=== PATIENT | male | born 1960 | race Caucasian/White ===

== ENCOUNTER 2017-11-07 06:37 | Emergency (ER) | payer BC, SELFPAY ==
[2017-11-07 06:38] VITALS: BP 147/74; PULSE 82; RESP 17; TEMP 36.6; O2SAT 96; BMI 39.8
--- NOTE | 2017-11-07 07:02 | ED.VISSUMM ---
- ER Visit Summary Date of Service: 11/07/17 Chief Complaint: Hives History of Present Illness: The patient is a 56 M who states that on Wednesday (2 days ago) when he laid down to sleep he developed diffuse itching and hives. He states he had this about 6 years ago no cause was identified. He has not had a recurrence. At that time he was not on lisinopril. He is currently on lisinopril. He does not note any angioedema-like symptoms. He denies any shortness of breath or any gastrointestinal symptoms. He denies any bullae. He denies any changes in soaps lotions or shampoos detergents etc. Physical Examination: Afebrile vital signs are stable Gen: Well-nourished well-developed Head: Normocephalic atraumatic Eyes: Perrl EOMI ENT: TMs clear no rhinorrhea moist mucous membranes Neck: Supple no lymphadenopathy no JVD nontender CVS: Regular rate rhythm no murmurs normal S1-S2 Respiratory: No distress clear to auscultation bilaterally chest nontender Abdomen: Soft nontender nondistended normal bowel sounds no masses Back: Nontender Extremity: Nontender no edema Skin: Normal color patient has hives torso arms legs Neuro: alert orientated ?3 CN II-XII intact normal strength sensation reflexes gait cerebellar Psych: Normal affect normal mood Emergency Department Course and Treatment: Patient will be started on tapering dose of prednisone. Also would recommend Pepcid. Patient will follow up with his doctor return if worsening or concerns. Impression: 1. Urticaria This note was generated with [employer] dictation software. It may contain incorrect words, spelling, and punctuation that were not noted in review of the chart prior to signing ED Disposition - Plan for ED Patient: Disposition: Home or Assisted Living Chief Complaint: Allergic Reaction Instructions: ED Urticaria Prescriptions: Prednisone [Deltasone] 60 mg PO DAILY #24 tab Famotidine [Pepcid] 20 mg PO BID #14 tab Referrals: Jaime Tolentino MD [Primary Care Provider] - 1 Week
== END 2017-11-07 07:19 | disposition home or self-care (01) ==
PROVIDERS: Emergency Provider Emergency Medicine; Family Provider Family Medicine; PCP Family Medicine
DX: L50.9 Urticaria, unspecified (principal); I10 Essential (primary) hypertension; Z79.899 Other long term (current) drug therapy
CPT/HCPCS: 99282

== ENCOUNTER 2019-12-18 10:45 | Emergency (ER) | payer BC, SELFPAY ==
[2019-12-18 10:46] VITALS: BP 161/75; PULSE 93; RESP 16; TEMP 36.4; O2SAT 99; BMI 35.5
--- NOTE | 2019-12-18 10:57 | ED.VISSUMM ---
- ER Visit Summary Date of Service: 12/18/19 Chief Complaint: Laceration History of Present Illness: The patient is a 59 M presenting with laceration to left index finger. He states that his finger got caught on a wood splitter yesterday. He felt it would improve with just using a Band-Aid. The bleeding is controlled. He denies other injuries. Last tetanus is unknown. Physical Examination: Vitals are stable. Patient is afebrile. Alert no acute distress. HEENT exam is unremarkable. Neck is supple. Lungs are clear and equal bilaterally. Heart is regular rate and rhythm. Extremities left distal index finger 1.5 cm laceration. Tendon function intact. Normal cap refill Skin is warm and dry. No focal neurologic deficit. Remainder of exam is unremarkable. Emergency Department Course and Treatment: Patient was given Adacel IM. Wound was irrigated. Left hand x-ray shows nondisplaced fracture through the distal pharynx of the index finger with a tiny radiopacity in the soft tissues. Tiny linear opacity is seen within the dorsal soft tissues between the third and fourth metatarsal heads. There is no wound in this area. Wound was copiously irrigated. Dressing was applied as well as aluminum foam splint. He was given Keflex. Advised to follow-up with Dr. Kirkland. Advised return to ED for worsening complaints. Disposition: Discharge home Impression: Left index finger laceration, left index distal phalanx fracture This note was generated with [employer] dictation software. It may contain incorrect words, spelling, and punctuation that were not noted in review of the chart prior to signing ED Disposition - Plan for ED Patient: Instructions: ED Laceration Hand Prescriptions: Cephalexin [Keflex] 500 mg PO Q6 #40 cap Prescription Printed Referrals: Chilango Kirkland MD [STAFF PHYSICIAN] - Jaime Tolentino MD [Primary Care Provider] -
[2019-12-18] MEDS: Diphth,Pertuss(Acell),Tet Vac 0.5 ML Vial IM (10:59)
--- NOTE | 2019-12-18 11:07 | RAD_ITS ---
STUDY: X-RAY - LEFT HAND REASON FOR EXAM: Male, 59 years old. Laceration to left index finger from wood splitter yesterday TECHNIQUE: 3 view(s) of the hand. COMPARISON: None. FINDINGS: Normal radiocarpal articulation. Normal distal radioulnar joint. Normal visualized carpal bones. Normal carpal articulations Normal carpometacarpal articulation of the thumb. Normal second through fifth carpometacarpal joints. Normal metacarpi. Normal metacarpophalangeal joint of the thumb. Normal interphalangeal joint of the thumb. Normal proximal and distal phalanges of the thumb. Normal metacarpophalangeal joints of the second through fifth fingers. Normal proximal and distal interphalangeal joints of the second through fifth fingers. Nondisplaced linear fracture involving the distal phalanx of the index finger. A tiny radiopacity is seen along the ulnar aspect of the tuft of the index finger. There is also evidence of a tiny linear density in the dorsal soft tissues between the heads of the third and fourth metacarpals. RAD/Hand Min 3 Views IMPRESSION: Nondisplaced fracture through the distal pharynx of the index finger with a tiny radiopacity in the soft tissues as described. Tiny linear opacity is seen within the dorsal soft tissues between the third and fourth metatarsal heads. Electronically Signed: Eugene Garces, at 11:20 EDT , Service support ,
--- NOTE | 2019-12-18 11:41 | ED.DEP ---
ED Disposition - Plan for ED Patient: Instructions: ED Laceration Hand Prescriptions: Cephalexin [Keflex] 500 mg PO Q6 #40 cap Prescription Printed Referrals: Jaime Tolentino MD [Primary Care Provider] -
--- NOTE | 2019-12-18 11:45 | ED.DEP ---
ED Disposition - Plan for ED Patient: Instructions: ED Laceration Hand Prescriptions: Cephalexin [Keflex] 500 mg PO Q6 #40 cap Prescription Printed Referrals: Jaime Tolentino MD [Primary Care Provider] - Chilango Kirkland MD [STAFF PHYSICIAN] -
[2019-12-18] MEDS: Cephalexin 250 MG Capsule 500 MG PO (12:00)
== END 2019-12-18 12:06 | disposition home or self-care (01) ==
PROVIDERS: Emergency Provider Emergency Medicine; PCP Family Medicine
DX: S61.211A Laceration without foreign body of left index finger without damage to nail, initial encounter (principal); S62.631A Displaced fracture of distal phalanx of left index finger, initial encounter for closed fracture; I10 Essential (primary) hypertension; X58.XXXA Exposure to other specified factors, initial encounter
CPT/HCPCS: 12001; 73130; 90715; 96372; 99283

== ENCOUNTER 2021-12-25 08:44 | Emergency (ER) | payer BC, SELFPAY ==
[2021-12-25 08:45] VITALS: BP 114/56; PULSE 76; RESP 16; TEMP 36.1; O2SAT 94; BMI 37.8
--- NOTE | 2021-12-25 09:03 | RAD_ITS ---
STUDY: X-RAY CHEST REASON FOR EXAM: Male, 61 years old. Chest pain. Syncope. TECHNIQUE: Single AP portable view of the chest. COMPARISON: None. FINDINGS: EKG electrodes are seen. Mild increased markings in the posterior medial segment of the left lower lobe. Follow-up recommended. There is no demonstrated pleural abnormality. Normal size heart. Normal mediastinum and mary. Normal visualized pulmonary arteries. Normal visualized aortic arch and descending thoracic aorta. There are diffuse degenerative changes of the visualized thoracic spine. Normal visualized ribs, clavicles, and shoulders. There is no demonstrated abnormality of the visualized soft tissue structures of the upper abdomen. RAD/Chest 1 View (Portable) IMPRESSION: Mild degree of increased markings in the posterior medial segment of the left lower lobe. Follow-up recommended. Electronically Signed: Eugene Garces MD at 9:58 EDT ,
--- NOTE | 2021-12-25 09:03 | EKG12_ITS ---
Test Reason : SYNCOPE Blood Pressure : / mmHG Vent. Rate : 080 BPM Atrial Rate : 080 BPM P-R Int : 152 ms QRS Dur : 106 ms QT Int : 384 ms P-R-T Axes : 048 -17 044 degrees QTc Int : 442 ms Sinus rhythm with occasional Premature ventricular complexes Inferior infarct , age undetermined Abnormal ECG Confirmed by RAUL OLSON, LYLE ([id number]), news videotape editor TELLO SCHUSTER ([id number]) on 12/29/2021 10:40:44 AM Referred By: KRUPA Confirmed By:LYLE CARTER MD
--- NOTE | 2021-12-25 09:04 | EX.ED.DYSGE1 ---
HPI History of Present Illness Chief Complaint: Syncope Informant: patient and EMS Onset/Context/Timing Onset: Today Narrative Narrative: Patient presents after having a syncopal episode at work. Patient states has not felt well for the past 2 days. He was off work yesterday and today at work just felt more fatigued and tired than normal. He had a mild cough for 2 days. He had a poor appetite and not been eating and drinking much. He does have a history of hypertension and did take his blood pressure medication this morning. Patient states he members feel then lightheaded. He was going to go tell his boss that he needed to leave work at 10 because he was not feeling well. The next thing he remembers he woke up on the floor. He states he does remember his vision going white before passing out. He denies having chest pain or palpitations. PFSH [facility], [facility] Medical History Hypertension Home Medications lisinopril 10 mg tablet 10 mg PO DAILY 11/07/17 [History Last Taken Unknown] Allergy/AdvReac Type Severity Reaction Status Date / Time calamine [From Caladryl] Allergy Hives Verified 12/25/21 08:51 camphor [From Caladryl] Allergy Hives Verified 12/25/21 08:51 pramoxine [From Caladryl] Allergy Hives Verified 12/25/21 08:51 diphenhydramine AdvReac Hives Verified 12/25/21 08:50 [From Benadryl] Surgical History no surgical history Social History Smoking Status: Never smoker ROS ROS ED Constitutional Constitutional ED: Denies chills or fever(s) Eyes Eyes: Denies change in vision or discharge from eye(s) ENT ENT ED: Denies discharge from eye(s), rhinorrhea or sore throat Cardiovascular Cardiovascular: Denies chest pain or palpitations Respiratory/Chest Respiratory/Chest: Reports cough; Denies dyspnea Gastrointestinal Gastrointestinal: Reports other Details: Decreased appetite ; Denies abdominal pain, diarrhea, nausea or vomiting Genitourinary Genitourinary ED: Denies dysuria Musculoskeletal Musculoskeletal: Denies back pain or extremity pain Integumentary Denies Abrasions or rash Neurologic Neurologic: Denies headache(s) or weakness Allergic/Immunologic Allergic/Immunologic ED: Denies lip swelling or urticaria EXAM Physical Exam Const Vital Signs: 12/25/21 08:45 12/25/21 08:59 12/25/21 09:26 Temperature 96.9 F L Temperature Source Oral Pulse Rate 76 77 Respiratory Rate 16 16 Respiratory Effort Normal Non-Labored Respiratory Pattern Normal Blood Pressure 114/56 L 110/53 L Blood Pressure Mean 75 72 Pulse Ox 94 99 Oxygen Delivery Method Room Air Room Air 12/25/21 10:31 12/25/21 11:35 Temperature Temperature Source Pulse Rate 83 79 Respiratory Rate 16 18 Respiratory Effort Respiratory Pattern Blood Pressure 125/61 H 117/72 Blood Pressure Mean 82 87 Pulse Ox 96 Oxygen Delivery Method Positive well nourished and well developed General Appearance ED: well developed HEENT Reports normocephalic and head/scalp atraumatic Eyes PERRL and EOMs intact bilaterally Neck supple Chest Wall inspection of chest normal and palpation of chest normal Resp normal respiratory effort and clear to auscultation bilaterally Cardio regular rate and regular rhythm GI normal to inspection, nondistended, normoactive bowel sounds Palpation: soft Extremity normal to inspection Neuro oriented x3 and no sensory deficits noted Sensorium / Orientation: alert Motor Exam: strength 5/5 throughout Psych mental status grossly normal Skin no rashes or lesions noted MDM MDM MDM Narrative Medical decision making narrative: Patient given a liter IV fluids. EKG, chest x-ray, lab work obtained. COVID swab ordered. Lab Data Attestation: I reviewed the patient's lab results. Labs: Laboratory Results - last 24 hr 12/25/21 12/25/21 09:25 09:25 WBC 7.4 RBC 4.82 Hgb 14.5 Hct 43.1 MCV 89.4 MCH 30.1 MCHC 33.6 RDW Std Deviation 42.6 RDW Coeff of Tati 13.0 Plt Count 223 MPV 9.1 Immature Gran % (Auto) 0.700 Neut % (Auto) 74.3 H Lymph % (Auto) 11.1 L Cla[place]orne % (Auto) 11.9 H Eos % (Auto) 1.5 Baso % (Auto) 0.5 Absolute Neuts (auto) 5.5 Absolute Lymphs (auto) 0.82 L Nucleated RBC % 0 Sodium 133 L Potassium 4.1 Chloride 97 L Carbon Dioxide 28.0 Anion Gap 8 BUN 19 H Creatinine 1.65 H Estim Creat Clear Calc 41.89 Est GFR (MDRD) Af Amer 55 L Est GFR (MDRD) Non-Af 45 L BUN/Creatinine Ratio 11.5 Glucose 120 H Calcium 9.2 Rapid COVID: Negative Radiography Chest X-Ray - ED: 1 View, Read by ED Physician, Normal, Heart, Lungs and Mediastinum Diagnostic Testing: Clinical Impression(s) from Imaging Studies Chest X-Ray 12/25/21 09:03 IMPRESSION: Mild degree of increased markings in the posterior medial segment of the left lower lobe. Follow-up recommended. Electronically Signed: Eugene Garces MD at 9:58 EDT , EKG Initial EKG: Attestation: I personally reviewed and interpreted this EKG as follows: Interpretation: Sinus Rhythm (Sinus at 80 with PVC. No acute ischemia.) Treatment and Re-Evaluation Narrative: We will talkOn repeat evaluation patient resting comfortably. Rate p.o. here. He was able to ambulate to the restroom and back without difficulty. Lab work is reviewed with him. CBC is normal but chemistry studies do reveal a BUN of 19 and a creatinine 1.65. The last labs I have available for her to compare to are from 6 years ago. At that time his renal function was normal. Chest x-ray reveals no focal infiltrate per my interpretation. Radiology interpretation is reviewed. EKG reveals no ischemia. COVID test is negative. At this time patient be instructed to increase p.o. fluids. Blood pressure at this time is in the 130 systolic range. He will be written off work tomorrow and states he has the weekend off to recover from his illness. Return instructions are provided. Discharge Plan Triage Chief Complaint: Syncope ED Provider: Annamaria Tolentino Dx/Rx/DC Orders Clinical Impression: Viral syndrome, Dehydration, Syncope Instructions: ED Dehydration (Adult), ED Viral Syndrome (Adult), ED Dizziness or Syncope ... Prescriptions: No Action lisinopril 10 tablet 10 mg PO DAILY Label Comments: Stand Alone Forms: ED Work / School Excuse Primary Care Provider: Jaime Tolentino Referrals: Jaime Tolentino MD [Primary Care Provider] - 1-2 Weeks Disposition Disposition: Home, Self Care
[2021-12-25] MEDS: 0.9% Normal Saline 1,000 ML 1000 ML IV (09:25)
[2021-12-25 09:26] VITALS: BP 110/53; PULSE 77; RESP 16; O2SAT 99
[2021-12-25 09:37] LABS: Absolute Lymphocyte Count 0.82 X10^3/uL (0.83-4.51); Absolute Neutrophil Count 5.5 X10^3/uL (2.0-7.7); Basophil# 0.04 X10^3/uL; Basophil% 0.5 % (0-1); Eosinophil# 0.11 X10^3/uL; Eosinophils% 1.5 % (0-5); Hematocrit 43.1 % (40-54); Hemoglobin 14.5 g/dL (13.0-16.5); Lymphocyte # 0.82 X10^3/ul (0.83-4.51); Lymphocyte % 11.1 % (19-41); Mean Corp Hgb Conc 33.6 g/dL (32-36); Mean Corpuscular Hgb 30.1 pg (27.0-32.0); Mean Corpuscular Volume 89.4 fL (80-94); Mean Platelet Vol. 9.1 fl (6.2-12.0); Monocyte# 0.88 X10^3/uL; Monocyte% 11.9 % (0-10); NRBC Flagged by Analyzer 0 % (0-5); Neutrophil # 5.52 X10^3/uL (2.7-7.7); Neutrophil % 74.3 % (47-70); Platelet Count 223 K/mm3 (150-450); RBC Distribution Width SD 42.6 fl (35.1-43.9); Red Blood Count 4.82 M/mm3 (4.6-6.2); White Blood Count 7.4 K/mm3 (4.4-11.0)
[2021-12-25 09:50] LABS: Anion Gap 8 (5-15); BUN 19 mg/dL (7-18); BUN/Creat Ratio 11.5 RATIO (10-20); Calcium,Total 9.2 mg/dL (8.5-10.1); Chloride 97 mmol/L (98-107); Creatinine, Serum 1.65 mg/dL (0.70-1.30); EST Glomerular Filtration Rate 45 mL/min (>60); Est Glom Filt Rate - Afr Amer 55 mL/min (>60); Estimated Creatinine Clearance 41.89 ml/min; Glucose 120 mg/dL (74-106); Potassium 4.1 mmol/L (3.5-5.1); Sodium Level 133 mmol/L (136-145)
[2021-12-25 10:31] VITALS: BP 125/61; PULSE 83; RESP 16; O2SAT 96
[2021-12-25 11:35] VITALS: BP 117/72; PULSE 79; RESP 18
[2021-12-25 12:51] VITALS: BP 131/77; PULSE 75
== END 2021-12-25 12:53 | disposition home or self-care (01) ==
PROVIDERS: Emergency Provider Emergency Medicine; PCP Family Medicine; Visit Provider Emergency Medicine
DX: B34.9 Viral infection, unspecified (principal); Z20.822 Contact with and (suspected) exposure to COVID-19; R55 Syncope and collapse; E86.0 Dehydration; I10 Essential (primary) hypertension; Z79.899 Other long term (current) drug therapy
CPT/HCPCS: 71045; 80048; 85025; 87811; 93005; 96360; 96361; 99285

== ENCOUNTER 2022-04-29 09:37 | Emergency (ER) | payer BC, SELFPAY ==
[2022-04-29 09:38] VITALS: BP 148/73; PULSE 98; RESP 18; TEMP 36.4; O2SAT 95; BMI 37.1
--- NOTE | 2022-04-29 09:52 | RAD_ITS ---
HISTORY: pain, injury. TECHNIQUE: XR Knee Complete 4 Views or More. COMPARISON: None. FINDINGS: BONES : No acute fracture identified. Mineralization unremarkable. JOINTS: No dislocation. Degenerative change with medial compartment joint space narrowing. RAD/Knee 4 or More Views IMPRESSION: No acute fracture or dislocation identified . Mild degenerative change of the right knee. Electronically Signed: May Ortega MD at 10:33 EST ,
--- NOTE | 2022-04-29 09:53 | ED.VIS.LOWEX ---
HPI History of Present Illness Chief Complaint: Lower Extremity Injury Detail of Chief Complaint: Right knee pain Informant: patient Narrative Narrative: Patient presents emergency department complaint of right knee pain. Patient states that in February he had cortisone injections in both knees. That same day patient states that he stepped on a dog toy and twisted his right knee. Patient subsequently had physical therapy but no x-rays of the knee. Patient states that he was off work for a time due to an unrelated issue therefore he did not have a lot of discomfort in the right knee. Patient states that he started back to work April 03 that he has been standing a lot. Yesterday he started having more severe pain in the right knee. Patient having hard time standing and bearing weight secondary to pain. Pain is worse with standing and axial load on the knee. Patient states that if he holds the knee slightly flexed that there is not a lot of discomfort. He denies new injury. Patient states that he has an MRI scheduled for May 08 but did not think that he could wait that long. Patient being seen by [facility] but cannot remember the name of the physician there that he seen before. [facility] Medical History Hypertension Home Medications lisinopril 10 mg tablet 10 mg PO DAILY 11/07/17 [History Last Taken Unknown] hydrocodone-acetaminophen 5-325mg 5mg-325mg 1 tab PO Q4H PRN PRN Pain 2 days #10 TABLETS 04/29/22 [Rx Last Taken Unknown] hydrocodone-acetaminophen 5-325mg 5mg-325mg 1 tab PO Q4H PRN PRN Pain 2 days #10 TABLETS 04/29/22 [Rx Last Taken Unknown] Allergy/AdvReac Type Severity Reaction Status Date / Time calamine [From Caladryl] Allergy Hives Verified 04/29/22 09:37 camphor [From Caladryl] Allergy Hives Verified 04/29/22 09:37 pramoxine [From Caladryl] Allergy Hives Verified 04/29/22 09:37 diphenhydramine AdvReac Hives Verified 04/29/22 09:37 [From Benadryl] Surgical History no surgical history Social History Smoking Status: Never smoker ROS ROS ED Review of Systems ROS Unobtainable: other Constitutional Constitutional ED: Reports lethargy; Denies chills, fever(s), sweats or weight loss Eyes Eyes: Denies blurry vision, change in vision or diplopia ENT ENT ED: Denies rhinorrhea or sore throat Cardiovascular Cardiovascular: Denies chest pain, orthopnea or racing heartbeat Respiratory/Chest Respiratory/Chest: Denies cough, dyspnea, dyspnea on exertion, orthopnea or sputum Gastrointestinal Gastrointestinal: Denies abdominal pain, diarrhea, nausea or vomiting Genitourinary Genitourinary ED: Denies dysuria, hematuria or urinary frequency Musculoskeletal Musculoskeletal: Reports other Details: Right knee pain ; Denies arthralgias, back pain, myalgias or neck pain Integumentary Denies abscess, Abrasions or rash Neurologic Neurologic: Denies headache(s) or weakness Psychiatric Psychiatric: Denies anxiety, depression or suicidal thoughts Endocrine Endocrinology: Denies polydipsia, polyphagia or polyuria Hematologic/Lymphatic Hematologic/Lymphatic: Denies easy bleeding, easy bruising or lymphadenopathy Allergic/Immunologic Allergic/Immunologic ED: Denies mouth swelling, tongue swelling or urticaria EXAM Physical Exam Const Vital Signs: 04/29/22 09:38 Temperature 97.6 F L Temperature Source Temporal Pulse Rate 98 Respiratory Rate 18 Blood Pressure 148/73 H Blood Pressure Mean 98 Pulse Ox 95 Oxygen Delivery Method Room Air Positive well nourished and well developed General Appearance ED: well developed and NAD HEENT Reports TM's clear and moist mucous membranes normocephalic and atraumatic; Negative for trauma or tenderness Tympanic Membrane ED: Yes TM's clear Eyes PERRL and EOMs intact bilaterally General Eye ED: Negative for pale conjunctiva or scleral icterus Neck no lymphadenopathy, supple and no JVD General: Negative for tenderness Chest Wall inspection of chest normal and palpation of chest normal Chest: Negative for tenderness Resp normal respiratory effort and clear to auscultation bilaterally Effort and Inspection: Negative for respiratory distress or pain with movement Auscultation: Negative for rhonchi, wheezes or diminished lung sounds Cardio regular rate, regular rhythm, S1 normal heart sound, S2 normal heart sound and no murmurs Peripheral Pulses: pulses 2+ throughout GI normal to inspection, nondistended, normoactive bowel sounds, soft to palpation, non-tender, non-distended and no masses Back/Spine no CVA tenderness and no thoracic nor lumbar tenderness Extremity Extremity Narrative: Right knee-no effusion noted. There is no erythema or warmth noted. He has good range of motion flexion extension of the knee. Ligamentously stable on exam. Patient has diffuse tenderness palpation over the medial and lateral joint lines on exam. General Extremety ED: Negative for edema General Extremity: Negative for edema Neuro oriented x3, CN's II-XII intact bilaterally, no sensory deficits noted and gait normal Sensorium / Orientation: awake, alert, oriented to person, oriented to place and oriented to time Motor Exam: strength 5/5 throughout and strength abnormal Psych mental status grossly normal Skin no rashes or lesions noted and no wounds MDM MDM MDM Narrative Medical decision making narrative: Patient with right knee pain with remote history of trauma. Scheduled to have MRI on May 08. This does not need to be performed emergently in the emergency department. X-rays do not show any acute fractures. Patient will be given knee immobilizer. Patient has crutches. Patient given work restrictions. Patient given a prescription for [place] for severe pain. Patient advised to follow-up with orthopedic surgeon. Radiography Diagnostic Testing: Clinical Impression(s) from Imaging Studies Knee X-Ray 04/29/22 09:52 IMPRESSION: No acute fracture or dislocation identified . Mild degenerative change of the right knee. Electronically Signed: May Ortega MD at 10:33 EST Reading Location ID and State: [address] [place] [address] Tel , Service support , 4 view x-rays of right knee obtained interpreted by myself as narrowing of the medial joint line with concern for degenerative changes of the medial meniscus. No fractures noted. Radiology in agreement. Discharge Plan Triage Chief Complaint: Lower Extremity Injury ED Provider: Mirela Reyes Dx/Rx/DC Orders Clinical Impression: Acute pain of right knee Instructions: ED Knee Pain of Uncertain Cause Prescriptions: New hydrocodone-acetaminophen [hydrocodone-acetaminophen] 5-325 mg tablet 1 tab PO Q4H PRN PRN (Reason: Pain) 2 Days Qty: 10 0RF hydrocodone-acetaminophen [hydrocodone-acetaminophen] 5-325 mg tablet 1 tab PO Q4H PRN PRN (Reason: Pain) 2 Days Qty: 10 0RF No Action lisinopril 10 tablet 10 mg PO DAILY Label Comments: Primary Care Provider: Jaime Tolentino Referrals: Rodney Adamson DO [Med Staff - Active Staff] - 5-7 Days Jaime Tolentino MD [Primary Care Provider] - Disposition Disposition: Home, Self Care Discharge Date/Time: 04/29/22 11:14
== END 2022-04-29 11:14 | disposition home or self-care (01) ==
PROVIDERS: Emergency Provider Emergency Medicine; PCP Family Medicine; Visit Provider Emergency Medicine
DX: M25.561 Pain in right knee (principal); I10 Essential (primary) hypertension
CPT/HCPCS: 73564; 99283

== ENCOUNTER → 2022-05-08 | Outpatient (CLI) | payer BC, SELFPAY ==
--- NOTE | 2022-05-08 15:37 | MRI_ITS ---
INDICATION: SPRAIN OF OTHER SPECIFIED PARTS OF RIGHT KNEE, SUBS ENCNTR EXAMINATION: MRI - RIGHT MR Knee W/O Contrast TECHNIQUE: Multiplanar and multisequence MR images of the RIGHT knee without contrast. IV Contrast Dosage and Agent: None. COMPARISON: April 29, 2022 knee radiograph. FINDINGS: BONE: No fracture or abnormal bone marrow signal. JOINT: Moderate knee joint effusion with mild synovial hypertrophy. Knee joint fluid extends posterior medial from the joint, deep to the semimembranosus tendon. No visualized intra-articular body. TISSUES: Thickening and increased internal signal within the distal semimembranosus tendon. Gastrocnemius tendons are intact. Pes anserine tendons are intact. MUSCLES: Normal intramuscular signal. CRUCIATE LIGAMENTS: Anterior and posterior cruciate ligaments are intact. PATELLOFEMORAL COMPARTMENT: Intact quadriceps and patellar tendons. Intact patellofemoral ligaments. Compartment cartilage is preserved. Congenital shallow trochlea. MEDIAL COMPARTMENT: Complex tear inferior posterior horn medial meniscus, coronal image 10 and sagittal image 17, with medial displacement of the meniscal body and narrowing of the compartment space, coronal image 16. Trace edema superficial and deep to the medial collateral ligament with normal internal signal and morphology. Mild diffuse chondral thinning without full thickness loss over subchondral edema. LATERAL COMPARTMENT: Intact meniscus. Preserved compartment cartilage. Intact lateral collateral ligament complex and popliteus tendon. MRI/Lower Ext Joint Only (Routine) IMPRESSION: Complex posterior horn medial meniscal undersurface tear with medial displacement of the meniscal body and medial compartment space narrowing. Underlying mild diffuse chondral loss in the medial compartment without full-thickness loss or subchondral edema. Mild edema superficial and deep to the medial collateral ligament compatible with grade 1 sprain in the appropriate setting. Moderate knee effusion. 3 mm wide fluid signal within the distal semimembranosus tendon just prior to tibial insertion compatible with partial tear or ganglion cyst. Electronically Signed: Reuben Rangel MD at 9:08 EST ,
--- NOTE | 2022-05-08 15:52 | RAD_ITS ---
INDICATION: Pre MRI clearance and Hx of metal in eyes EXAMINATION/TECHNIQUE: X-RAY - XR Orbits Clearance FB COMPARISON: None. RAD/Orbits for Foreign Body IMPRESSION: A metallic like density projects over the high left cranial vault/calvarium. No radiopaque density involves either orbit. Electronically Signed: Eliseo Lopez MD at 16:23 EST ,
== END | disposition home or self-care (01) ==
LOC: MRI 15:33
PROVIDERS: PCP Family Medicine; Visit Provider Physician Assistant Surgical
DX: S83.8X1D Sprain of other specified parts of right knee, subsequent encounter (principal); X58.XXXA Exposure to other specified factors, initial encounter
CPT/HCPCS: 70030; 73721

== ENCOUNTER 2022-10-13 16:20 | Emergency (ER) | payer BC, SELFPAY ==
[2022-10-13 16:21] VITALS: BP 160/82; PULSE 82; RESP 17; TEMP 36.6; O2SAT 99; BMI 37.5
--- NOTE | 2022-10-13 16:25 | RAD_ITS ---
STUDY: X-RAY - LEFT FOOT CLINICAL: Male, 61 years old. Heel pain when standing. Lateral foot pain. TECHNIQUE: 3 view(s) of the foot. COMPARISON: None. FINDINGS: Normal talus, calcaneus, and tarsal bones. Normal visualized subtalar, talonavicular, calcaneocuboid, tarsal and tarsometatarsal articulations. Normal metatarsi. Normal metatarsophalangeal joint of the great toe. There is a bipartite tibial sesamoid. Normal interphalangeal joint of the great toe. Normal phalanges of the great toe. Normal second through fifth metatarsophalangeal joints. Normal interphalangeal joints and phalanges of the lesser toes. The soft tissue structures are unremarkable. RAD/Foot min 3 Views IMPRESSION: No acute fracture or dislocation. Electronically Signed: Yg Zarco DO at 16:45 EDT ,
--- NOTE | 2022-10-13 16:25 | RAD_ITS ---
STUDY: X-RAY - LEFT ANKLE REASON FOR EXAM: Male, 61 years old. Left heel lateral foot pain. TECHNIQUE: 3 view(s) of the ankle. COMPARISON: Left foot, October 13, 2022. FINDINGS: Normal visualized distal tibia and fibula. Normal medial and lateral malleoli. Normal tibiotalar articulation and ankle mortise. Normal visualized talus and calcaneus. The visualized subtalar, talonavicular, calcaneocuboid and tarsal articulations are normal. The soft tissue structures are unremarkable. RAD/Ankle min 3 Views IMPRESSION: Normal x-ray examination of the left ankle. Electronically Signed: Yg Zarco DO at 16:45 EDT ,
--- NOTE | 2022-10-13 16:28 | EDS_ITS ---
HPI History of Present Illness Chief Complaint: Lower Extremity Injury Informant: patient Narrative Narrative: Patient presents with left foot/ankle area pain. Patient states he felt fine this morning. He was walking out of work. He states he suddenly got a sharp pop in the left side of his foot ankle area. And it is now sore when he bears weight. He did not twist it. He did not fall. But the pain was a sudden onset and sharp and localized. He does admit that he has been walking with a limp because he hurt his right knee several months ago and its not healing well. So he is putting a lot more weight on his left side routinely. He has no swelling in the leg. No history of DVT or PE. He is able to bear weight but it sore. No numbness. PFSH [facility] Medical History (Updated 10/13/22 @ 16:33 by Carmella Bolivar) Foot pain Hypertension Home Medications lisinopril 10 mg tablet 10 mg PO DAILY 11/07/17 [History Last Taken Unknown] hydrocodone-acetaminophen 5-325mg 5mg-325mg 1 tab PO Q4H PRN PRN Pain 2 days #10 TABLETS 04/29/22 [Rx Last Taken Unknown] hydrocodone-acetaminophen 5-325mg 5mg-325mg 1 tab PO Q4H PRN PRN Pain 2 days #10 TABLETS 04/29/22 [Rx Last Taken Unknown] hydrocodone-acetaminophen 5-325mg 5mg-325mg 1 tab PO Q6H PRN PRN Pain 3 days #10 TABLETS 10/13/22 [Rx Last Taken Unknown] Allergy/AdvReac Type Severity Reaction Status Date / Time calamine [From Caladryl] Allergy Hives Verified 10/13/22 16:21 camphor [From Caladryl] Allergy Hives Verified 10/13/22 16:21 pramoxine [From Caladryl] Allergy Hives Verified 10/13/22 16:21 diphenhydramine AdvReac Hives Verified 10/13/22 16:21 [From Benadryl] Social History Smoking Status: Never smoker ROS ROS ED Constitutional Constitutional ED: Denies chills or fever(s) Cardiovascular Cardiovascular: Denies chest pain, palpitations or racing heartbeat Respiratory/Chest Respiratory/Chest: Denies cough or dyspnea Gastrointestinal Gastrointestinal: Denies nausea or vomiting Musculoskeletal Musculoskeletal: Reports arthralgias; Denies back pain or neck pain Integumentary Denies abscess, Abrasions or rash Neurologic Neurologic: Denies paresthesias or weakness Hematologic/Lymphatic Hematologic/Lymphatic: Denies easy bleeding or easy bruising EXAM Physical Exam Narrative Exam Narrative: Patient is awake alert no acute distress. He walked back to the room using crutches but is able to bear weight on that leg. HEENT shows no sign of trauma Cardiorespiratory shows easy unlabored breathing and normal saturations at 99% on room air showing no hypoxia. Abdomen has mild obesity but is not tender. Extremity was undressed. He has no tenderness in the calf. Achilles is intact to palpation and [place] test. Calcaneus is not tender. He has tenderness at the lateral fibula talofibular ligament and fifth metatarsal area. No notable swelling or ecchymosis at this time. No erythema. No deformities. Const Vital Signs: 10/13/22 16:21 Temperature 97.8 F Temperature Source Temporal Pulse Rate 82 Respiratory Rate 17 Blood Pressure 160/82 H Blood Pressure Mean 108 Pulse Ox 99 Oxygen Delivery Method Room Air MDM MDM MDM Narrative Medical decision making narrative: My independent interpretation the patient's three-view ankle x-ray shows some arthritic changes but no acute fracture or dislocation. My independent interpretation the patient's three-view left foot x-ray shows again some arthritic changes but no sign of acute fracture dislocation or Lisfranc's injury. Final reading of the above film shows no acute process. Patient will be written off for couple days. I will write him for a few pain pills. His online prescribing report shows 1 narcotic prescription earlier for his knee injury. He will follow-up with his primary physician. He should ice and elevate this. Radiography Diagnostic Testing: Clinical Impression(s) from Imaging Studies Ankle X-Ray 10/13/22 16:25 IMPRESSION: Normal x-ray examination of the left ankle. Electronically Signed: Yg Zarco DO at 16:45 EDT Reading Location ID and State: [address] [place] [address] Tel [phone], Service support , Foot X-Ray 10/13/22 16:25 IMPRESSION: No acute fracture or dislocation. Electronically Signed: Yg ZarcoDO at 16:45 EDT Reading Location ID and State: [address] [place] [address] Tel [phone], Service support , Discharge Plan Triage Chief Complaint: Lower Extremity Injury ED Provider: Kirby Torres Dx/Rx/DC Orders Clinical Impression: Strain of left foot Instructions: ED Foot Sprain Prescriptions: New hydrocodone-acetaminophen [hydrocodone-acetaminophen] 5-325 mg tablet 1 tab PO Q6H PRN PRN (Reason: Pain) 3 Days Qty: 10 0RF No Action lisinopril 10 tablet 10 mg PO DAILY Label Comments: hydrocodone-acetaminophen [hydrocodone-acetaminophen] 5-325 mg tablet 1 tab PO Q4H PRN PRN (Reason: Pain) 2 Days Qty: 10 0RF hydrocodone-acetaminophen [hydrocodone-acetaminophen] 5-325 mg tablet 1 tab PO Q4H PRN PRN (Reason: Pain) 2 Days Qty: 10 0RF Stand Alone Forms: ED Work / School Excuse Primary Care Provider: Jaime Tolentino Referrals: Jaime Tolentino MD [Primary Care Provider] - 3-5 Days Disposition Disposition: Home, Self Care
== END 2022-10-13 17:41 | disposition home or self-care (01) ==
LOC: ED 16:42
PROVIDERS: Emergency Provider Emergency Medicine; PCP Family Medicine; Visit Provider Emergency Medicine
DX: S96.912A Strain of unspecified muscle and tendon at ankle and foot level, left foot, initial encounter (principal); M19.072 Primary osteoarthritis, left ankle and foot; I10 Essential (primary) hypertension; X58.XXXA Exposure to other specified factors, initial encounter
CPT/HCPCS: 73610; 73630; 99282